=== PATIENT | male | born 1945 | race Two or more races ===

== ENCOUNTER 2020-05-29 12:36 | Outpatient (CLI) | payer MEDICARE, SELFPAY ==
[2020-05-29 12:23] VITALS: BMI 34.4
[2020-05-29 12:24] VITALS: BMI 34.4
--- NOTE | 2020-05-29 12:39 | XR_ITS ---
PROCEDURE: XR CHEST PORTABLE CLINICAL HISTORY: verify PICC placement COMPARISON: No exams were available for comparison FINDINGS: Left upper extremity PICC line has been inserted. The tip is at midline in the brachiocephalic vein region. There is mild cardiomegaly without failure. Patchy density is present in the left lower lobe and may be due to summation artifact versus underlying parenchymal opacity.. The right lung is clear. IMPRESSION: Left upper extremity PICC line tip appears to be in the region of the brachiocephalic vein on the left Dictated by: Jareth Romero MD 05/29/2020 13:03 Jareth Romero MD in [facility] 05/29/2020 13:03
== END 2020-05-29 13:30 | disposition home or self-care (01) ==
LOC: INF 12:36
PROVIDERS: PCP Nurse Practitioner Family; Visit Provider Nurse Practitioner Family
DX: M00.062 Staphylococcal arthritis, left knee (principal); B95.61 Methicillin susceptible Staphylococcus aureus infection as the cause of diseases classified elsewhere
CPT/HCPCS: 36569; 71045; C1751